=== PATIENT | female | born 1990 | race Two or more races ===

== ENCOUNTER 2019-11-01 01:34 | Emergency (ER) | payer MEDICAID ==
[~2019-11-01] VITALS: Ht 162.6 cm; Wt 95.5 kg
[2019-11-01 01:40] VITALS: BP 114/92
== END 2019-11-01 02:48 | disposition left against medical advice (07) ==
LOC: EMS 01:34
DX: R20.0 Anesthesia of skin (principal); Z53.21 Procedure and treatment not carried out due to patient leaving prior to being seen by health care provider